=== PATIENT | female | born 1965 | race Caucasian/White ===

== ENCOUNTER 2020-11-17 13:32 | Emergency (ER) | payer MEDICARE, MEDICAID, SELFPAY ==
--- NOTE | ~2020-11-17 | XR_ITS ---
EXAMINATION: XR chest 2V EXAM DATE: 11/17/2020 14:39 INDICATION: Shortness of breath, right-sided chest pain, pain on back of head. TECHNIQUE: Frontal and lateral projections of the chest obtained and reviewed. There is no prior heidy dy for comparison. FINDINGS: The lungs are clear. There are no pleural effusions. The cardiomediastinal silhouette is within normal limits. There is no pneumothorax suspected. The bones and soft tissues are unremarkab le. IMPRESSION: Unremarkable chest x-ray exam. Reviewed, dictated and finalized at location B. [facility] [employer]
[2020-11-17 13:42] VITALS: BP 137/81; PULSE 85; RESP 18; TEMP 36.4; O2SAT 99
[2020-11-17 14:01] VITALS: BP 137/81; PULSE 85; RESP 18; TEMP 36.4; O2SAT 99
--- NOTE | 2020-11-17 14:07 | ECG_ITS ---
Measurements Intervals Sasser Rate: 70 P: 68 MI: 160 QRS: 25 QRSD: 96 T: 49 QT: 381 QTc: 414 Interpretive Statements SINUS RHYTHM WITH SINUS ARRHYTHMIA DELAYED PRECORDIAL R/S TRANSITION BORDERLINE ECG Electronically Signed On 11-17-2020 14:49:12 [employer] by Harley Haque D.O.
--- NOTE | 2020-11-17 14:11 | ED.GENADULT ---
HPI - General Adult General Chief complaint: Headache Stated complaint: chest pain, head pain Time Seen by Provider: 11/17/20 13:46 Source: patient History of Present Illness HPI narrative: Patient is a 55 y/o female complaining of right occipital headache since yesterday. She describes her headache as sharp and throbbing. She rates her headache as 10/10. She took Ibuprofen which did not help. She also has some right sided chest pain. She has no nausea, vomiting, focal weakness or numbness. Related Data Home Medications Medication Instructions Recorded Confirmed lorazepam [Ativan] 1 mg PO DAILY 11/17/20 11/17/20 quetiapine [Seroquel] 100 mg PO DAILY 11/17/20 11/17/20 Allergies Allergy/AdvReac Type Severity Reaction Status Date / Time acetaminophen [From Tylenol] Allergy Itching Verified 11/17/20 13:55 gabapentin [From Neurontin] Allergy Other Verified 11/17/20 13:56 cyclobenzaprine AdvReac Drowsy Verified 11/17/20 13:56 [From Flexeril] Review of Systems Constitutional: Constitutional: Denies chills, Denies fever(s), Reports headache(s) and Denies weakness Eyes: Eyes: Denies blurry vision ENT: Reports headache(s) and Denies neck pain Cardiovascular: Cardiovascular: Reports chest pain and Denies dyspnea Respiratory: Respiratory: Denies cough and Denies dyspnea Gastrointestinal: Gastrointestinal: Denies abdominal pain, Denies diarrhea, Denies nausea and Denies vomiting Genitourinary: Genitourinary: Denies hematuria and Denies dysuria Musculoskeletal: Musculoskeletal: Denies back pain and Denies neck pain Neurologic: Reports headache(s) and Denies weakness Exam Const: General: no acute distress and well developed Orientation/consciousness: oriented to person, oriented to place, oriented to time and patient oriented x3 HENMT: Head: normocephalic Ears: external ears normal General nose exam: Normal external nose present Eyes: General: appearance normal, both eyes and all related structures Conjunctivae: conjunctivae normal Neck: Neck: normal visual inspection and full ROM Chest: Chest palpation & inspection: normal inspection of the chest and no tenderness Resp: Effort & Inspection: normal respiratory effort Auscultation: clear to auscultation bilaterally Cardio: Rate: regular rate Rhythm: regular rhythm GI: GI Palp: No abdominal tenderness and Yes Soft to palpation Skin: General skin exam: normal color and turgor normal Neuro: General: oriented to person, oriented to place, oriented to time and patient oriented x3 Cranial nerves: Yes Other cranial nerve findings present (deaf) Cognition (Neuro): normal cognition Motor exam (neuro): 5/5 motor strength present throughout Sensory Exam: normal sensation Extrem: General: normal to inspection, full ROM and no pedal edema Psych: Appearance: grossly normal Mental Status: mental status grossly normal Affect: normal affect Course Reevaluation(s) Reevaluation #1: Patient left evaluation is complete. She is considered to have left AMA. She is awake, alert and competent to make medical decision for herself. Vital Signs Vital signs: Vital Signs Temperature 36.4 C L 11/17/20 13:42 Pulse Rate 85 11/17/20 13:42 Respiratory Rate 18 11/17/20 13:42 Blood Pressure 137/81 11/17/20 13:42 Pulse Oximetry 99 11/17/20 13:42 Temperature 36.4 C L 11/17/20 14:01 Pulse Rate 73 11/17/20 14:31 Respiratory Rate 14 11/17/20 14:31 Blood Pressure 127/77 11/17/20 14:31 Pulse Oximetry 97 11/17/20 14:31 Medical Decision Making Vital Signs Vital Signs: Vital Signs Temperature 36.4 C L 11/17/20 13:42 Pulse Rate 85 11/17/20 13:42 Respiratory Rate 18 11/17/20 13:42 Blood Pressure 137/81 11/17/20 13:42 Pulse Oximetry 99 11/17/20 13:42 Temperature 36.4 C L 11/17/20 14:01 Pulse Rate 73 11/17/20 14:31 Respiratory Rate 14 11/17/20 14:31 Blood Pressure 127/77 11/17/20 14:31 Pulse Oximetry 97 08
[2020-11-17 14:20] LABS: Basophils Absolute Auto 0.1 K/mm3 (0.0-0.1); Basophils Percent Auto 0.9 % (0.2-1.2); Eosinophils Absolute Auto 0.1 K/mm3 (0-0.3); Eosinophils Percent Auto 1.6 % (0-4.4); Hematocrit 48.1 % (37.0-47.0); Hemoglobin 16.1 g/dL (12.0-15.0); Immature Granulocyte Absolute 0.01 K/mm3 (0.00-0.031); Immature Granulocyte Percent A 0.1 % (0-0.5); Lymphocytes Absolute Auto 2.43 K/mm3 (0.9-3.2); Lymphocytes Percent Auto 35.7 % (18.3-44.2); Mean Corpuscular HGB Conc 33.5 g/dl (32-36); Mean Corpuscular Hemoglobin 32.3 pg (26-34); Mean Corpuscular Volume 96.4 fl (80-100); Mean Platelet Volume 10.2 fl (7.4-10.4); Monocytes Absolute Auto 0.5 K/mm3 (0.1-0.6); Monocytes Percent Auto 7.9 % (2.6-8.5); Neutrophils Absolute Auto 3.7 K/mm3 (1.3-6.7); Neutrophils Percent Auto 53.8 % (45.5-73.1); Platelet Count Result 280 k/mm3 (150-375); Red Blood Count 4.99 M/mm3 (4.2-5.4); Red Cell Distribution Width 13.3 % (11.5-14.5); White Blood Count 6.8 K/mm3 (4.5-10.0)
[2020-11-17 14:31] VITALS: BP 127/77; PULSE 73; RESP 14; O2SAT 97
[2020-11-17 14:31] LABS: Alanine Aminotransferase 22 U/L (4-35); Albumin Level 4.4 g/dL (3.5-5.1); Alkaline Phosphatase 80 U/L (38-126); Anion Gap 6 mmol/L (8-16); Aspartate Amino Transferase 30 U/L (14-36); Bilirubin,Total 0.4 mg/dL (0.2-1.3); Blood Urea Nitrogen 12 mg/dL (7-17); Carbon Dioxide 28 mmol/L (22-30); Chloride 107 mmol/L (98-107); Estimated CRCL calculation 53 ml/min; Estimated Glomerular Filt Rate > 60; Glucose 111 mg/dL (65-105); Potassium 3.6 mmol/L (3.4-5.0); Sodium 141 mmol/L (137-145)
[2020-11-17 14:36] LABS: D Dimer 0.35 ug/mL (<0.48)
[2020-11-17 14:43] LABS: Troponin I < 0.012 ng/mL (0.000-0.034)
[2020-11-17] MEDS: diphenhydrAMINE HCl INJ 50 MG/ML VIAL 25 MG IV PUSH (14:59)
[2020-11-17] MEDS: SODIUM CHLORIDE 0.9% IV 1,000 ML 999 ML IV CONT (14:59)
[2020-11-17] MEDS: METOCLOPRAMIDE HCL 10 MG TABLET PO (14:59)
[2020-11-17] MEDS: KETOROLAC 15 MG/ML VIAL (*BKC) IV PUSH (14:59)
[2020-11-17] MEDS: DIHYDROERGOTAMINE MESYLATE 1 MG/ML AMP IV PUSH (15:22)
--- NOTE | 2020-11-17 16:35 | PC.NURSE ---
patient asked this rn to remove iv because she had to leave immediatly to steel pickler her grandchild. patient informed that the md was not finished with her evaluation.
== END 2020-11-17 16:58 | disposition left against medical advice (07) ==
PROVIDERS: Emergency Provider Emergency Medicine
DX: R51.9 Headache, unspecified (principal); R07.9 Chest pain, unspecified
CPT/HCPCS: 36415; 71046; 80053; 84484; 85025; 85380; 93005; 96361; 96374; 96375; 99284; A9270; J1110; J1200; J1885; J7030